=== PATIENT | female | born 1995 | race Caucasian/White ===

== ENCOUNTER 2022-04-15 12:25 | Outpatient (CLI) | payer OTHER, SELFPAY ==
[2022-04-15] VITALS (7 sets, daily range): BP systolic 124–139; BP diastolic 68–74; PULSE 79–97; TEMP 36.4–36.5; BMI 35.7
[2022-04-15] MEDS: Lactated Ringers 1,000 ML 999 ML IV (13:15)
[2022-04-15 13:29] LABS: ROM Internal Control Test YES-OK TO RESULT pt. (Internal QC); ROM Patient Test Negative (Negative)
[2022-04-15 14:17] LABS: Group B Strep DNA By PCR Negative (Negative); Internal Control PASS; Probe Check PASS; Specimen Processing Control PASS
--- NOTE | 2022-04-15 14:56 | OB.TRI.NOTE ---
HPI - General HPI Narrative ALFONSO BIRCH, is a 27 F at 36 weeks gestation who presents to triage with having a gush of fluid 3 days ago. Denies vaginal bleeding or continued leakage of fluid. Positive movement. Feeling some cramps that are less painful than menstrual cramps. Maternal Data Information NATASHA Calculator Estimated Delivery Date Method Current WG Current Estimate 05/13/22 Manual 36w 1d PFSH PFSH Home Medications Zoloft 50 mg PO/SL DAILY 04/15/22 [History Last Taken Unknown] vits,calcium 91-iron 28 mg-folic 975 mcg-dha 200 mg oral pack ( + DHA) 1 pkg PO DAILY 04/15/22 [History Last Taken 04/15/22] Allergy/AdvReac Type Severity Reaction Status Date / Time Penicillins Allergy Severe Anaphylaxis Verified 04/15/22 15:10 latex Allergy Mild rash/hives Verified 04/15/22 15:12 ROS Eyes Eyes: Denies blurry vision Cardiovascular Cardiovascular: Reports none; Denies chest pain at rest, chest pain with activity or dizziness Respiratory/Chest Respiratory/Chest: Denies cough or dyspnea Gastrointestinal Gastrointestinal: Reports none and other; Denies diarrhea or vomiting Genitourinary Genitourinary: Denies dysuria Musculoskeletal Musculoskeletal: Reports none Integumentary Integumentary: Reports none; Denies rash Neurologic Neurologic: Denies dizziness, headache(s) or other visual disturbances Psychiatric Psychiatric: Reports none Physical Exam Const alert and no apparent distress General Appearance: cooperative Orientation / Consciousness: awake Exam Limitations: no limitations HEENT normocephalic Eyes General Eye: normal appearance of both eyes Neck full ROM Chest inspection of chest normal Resp normal respiratory effort and normal air movement Effort and Inspection: symmetric chest movement Auscultation: clear to auscultation bilaterally Cardio regular rate GI soft to palpation, non-tender and non-distended Inspection: and other Back/Spine normal ROM Extremity full ROM, normal capillary refill and no calf tenderness Skin no rashes or lesions noted Neuro oriented x3 and CN's II-XII intact bilaterally Psych mental status grossly normal NST FHR Rate Baby A Baseline: 135 Variability:: Moderate Accelerations:: 15 x 15 Decelerations:: None NST Reactive:: Yes FHR Category:: Category I Uterine Activity:: 1-3 palpate mild and relaxed in between Assessment & Plan (1) 36 weeks gestation of : (2) Leakage of amniotic fluid: (3) Gestational diabetes: (4) Primigravida: (5) contractions: PLAN: Plan ROM plus - negative GBS collected and sent NST reactive, Cat. 1 tracing TOCO contractions every 1-3 minutes /-3 Start IV and give 1000 ml of fluid Extended monitoring No cervical change D/C home with follow up in office Dr. Swift notified
[2022-04-15] MEDS: Lactated Ringers 1,000 ML 200 ML IV (15:18)
== END 2022-04-15 16:25 | disposition home or self-care (01) ==
LOC: WPOUT 12:39 → WP 12:39
PROVIDERS: Visit Provider Advanced Practice Midwife
DX: O42.913 Preterm premature rupture of membranes, unspecified as to length of time between rupture and onset of labor, third trimester (principal); O24.419 Gestational diabetes mellitus in pregnancy, unspecified control; O09.613 Supervision of young primigravida, third trimester; O47.03 False labor before 37 completed weeks of gestation, third trimester; Z3A.36 36 weeks gestation of pregnancy
CPT/HCPCS: 96365; 96366; 59025; 59050; 84112; 87081; 87653; J7120

== ENCOUNTER 2022-05-06 18:25 | Inpatient (IN) | payer OTHER, SELFPAY ==
[2022-05-06] VITALS (8 sets, daily range): BP systolic 117–162; BP diastolic 66–101; PULSE 67–84; TEMP 36.6–36.8; O2SAT 98; BMI 37.7
[2022-05-06] MEDS: Lactated Ringers 1,000 ML 50 ML IV (20:05)
[2022-05-06 20:23] LABS: Absolute Lymphocyte Count 2.31 X10^3/uL (0.83-4.51); Absolute Neutrophil Count 7.3 X10^3/uL (2.0-7.7); Basophil# 0.08 X10^3/uL; Basophil% 0.7 % (0-1); Eosinophils% 0.9 % (0-5); Hematocrit 37.6 % (37-47); Hemoglobin 12.6 g/dL (12.0-15.0); Lymphocyte # 2.31 X10^3/ul (0.83-4.51); Lymphocyte % 20.5 % (19-41); Mean Corp Hgb Conc 33.5 g/dL (32-36); Mean Corpuscular Hgb 28.6 pg (27.0-32.0); Mean Corpuscular Volume 85.5 fL (81-99); Mean Platelet Vol. 10.1 fl (6.2-12.0); Monocyte# 1.39 X10^3/uL; Monocyte% 12.3 % (0-10); NRBC Flagged by Analyzer 0 % (0-5); Neutrophil # 7.29 X10^3/uL (2.7-7.7); Neutrophil % 64.8 % (47-70); Platelet Count 250 K/mm3 (150-450); RBC Distribution Width CV 13.2 % (11.6-14.6); RBC Distribution Width SD 40.3 fl (35.1-43.9); White Blood Count 11.3 K/mm3 (4.4-11.0)
[2022-05-06] MEDS: miSOPROStol 25 MCG TABLET PO (20:46)
--- NOTE | 2022-05-06 20:49 | PCM.HP.OB ---
HPI - General General Date of Admission: 05/06/22 HPI Narrative ALFONSO BIRCH, is a 27 F at 39 weeks gestation who presents for scheduled induction of labor for GDM A1 and polyhydramnios. Patient was a late transfer of care. Maternal Data Information NATASHA Calculator Estimated Delivery Date Method Current WG Current Estimate 05/13/22 Manual 39w 0d PFSH PFSH Medical History (Updated 05/06/22 @ 20:59 by Aileen Holbrook CNM) Adopted Anxiety Asthma Gestational diabetes Polyhydramnios Home Medications Zoloft 50 mg PO/SL DAILY anxiety 04/15/22 [History Last Taken 05/05/22 20:00] vits,calcium 91-iron 28 mg-folic 975 mcg-dha 200 mg oral pack ( + DHA) 1 pkg PO DAILY 04/15/22 [History Last Taken 05/05/22 20:00] Tylenol 1,000 mg PO/SL PRN PRN Pain 05/06/22 [History Last Taken Unknown] diphenhydramine HCl 25 mg capsule (Benadryl) 50 mg PO QHS PRN Sleep 05/06/22 [History Last Taken 05/05/22 20:00] Allergy/AdvReac Type Severity Reaction Status Date / Time Penicillins Allergy Severe Anaphylaxis Verified 04/15/22 15:10 latex Allergy Mild rash/hives Verified 04/15/22 15:12 Social History Smoking Status: Former smoker History Elective abortions Hx Para 0 Spontaneous abortions Hx # Term Pregnancies Ectopic pregnancies Hx # Pregnancies Multiple births # of living children ROS Eyes Eyes: Denies blurry vision, change in vision or spots in vision ENT HEENT: Denies dizziness or headache(s) Cardiovascular Cardiovascular: Denies abdominal pain, chest pain or dyspnea Respiratory/Chest Respiratory/Chest: Denies cough, dyspnea, shortness of breath at rest or shortness of breath with exertion Gastrointestinal Gastrointestinal: Denies abdominal pain, diarrhea or vomiting Genitourinary Genitourinary: Denies change in urinary stream, difficulty urinating or dysuria Musculoskeletal Musculoskeletal: Reports none Integumentary Integumentary: Denies rash Neurologic Neurologic: Denies dizziness, headache(s), memory loss or weakness Psychiatric Psychiatric: Reports none Vital Signs Vital Signs Vital Signs: 05/06/22 19:48 05/06/22 19:48 05/06/22 19:47 Temperature Temperature Source Temporal Pulse Rate 76 Blood Pressure BP Systolic BP Diastolic Pulse Ox 98 05/06/22 19:47 05/06/22 19:49 05/06/22 19:49 Temperature 97.8 F Temperature Source Pulse Rate 76 Blood Pressure 162/101 H BP Systolic 162 BP Diastolic 101 Pulse Ox 05/06/22 20:06 05/06/22 20:06 Temperature Temperature Source Pulse Rate 67 Blood Pressure 144/92 H BP Systolic 144 BP Diastolic 92 Pulse Ox Weight Weight: 193 lb Body Mass Index (BMI) 37.7 Physical Exam Const alert, oriented x3 and no apparent distress General Appearance: cooperative Orientation / Consciousness: awake Exam Limitations: no limitations HEENT normocephalic Head and Scalp: normal to inspection Eyes General Eye: normal appearance of both eyes Neck full ROM and no lymphadenopathy Lymph Lymphatic: no lymphadenopathy noted Chest inspection of chest normal Resp normal respiratory effort, normal air movement and clear to auscultation bilaterally Effort and Inspection: able to speak in complete sentences and symmetric chest movement Cardio regular rate and regular rhythm GI normal to inspection, nondistended, normoactive bowel sounds Manual OB Exam: presentation cephalic Back/Spine normal ROM Extremity full ROM and no calf tenderness Skin no rashes or lesions noted General Skin Exam: no breakdown Neuro oriented x3 and CN's II-XII intact bilaterally Psych mental status grossly normal and thought process normal Labs Labs Labs: Blood Type Pending Antibody Screen Pending Hct 37.6 % (37-47) Hgb 12.6 g/dL (12.0-15.0) Group B Strep DNA Negative (Negative) Assessment & Plan (1) 39 weeks gestation of : (2) GDM (gestational diabetes mellitus), class A1: (3) Polyhydramnios affecting : (4) Anxiety: COMMENT: pt takes zoloft (5) Encounter for induction of labor: PLAN: Plan GBS negative Admit to labor and delivery BP elevated upon admission- Continue to monitor/PIH labs drawn Routine labs Start IV and run fluids per orders CE- 1/50/-3 Cytotec 25 mcg PO every 4 hours x 6 doses total Anticipate placement of johns bulb in AM Dr. Swift notified of admission and is collaborating physician
[2022-05-06 21:45] LABS: Bedside Glucose 81 mg/dL (74-106)
[2022-05-06 21:45] LABS: Bedside Glucose 81 mg/dL (74-106)
[2022-05-06] MEDS: Sertraline 50 MG Tablet PO (23:13)
[2022-05-07] VITALS (54 sets, daily range): BP systolic 118–153; BP diastolic 61–96; PULSE 65–125; TEMP 36.2–36.9; O2SAT 93–100
[2022-05-07] MEDS: miSOPROStol 25 MCG TABLET PO ×2 (00:58→05:15)
[2022-05-07 01:25] LABS: Bedside Glucose 110 mg/dL (74-106)
[2022-05-07] MEDS: Acetaminophen 500 MG Tablet PO (05:15)
[2022-05-07 05:40] LABS: Bedside Glucose 84 mg/dL (74-106)
[2022-05-07] MEDS: 0.9% Normal Saline Single 100 ML IV.SOLN. INTRA-UTER (06:30)
[2022-05-07 07:43] LABS: ALB/GLOB Ratio 0.6 RATIO (0.9-2.4); AST(SGOT) 16 U/L (15-37); Alanine Aminotransfer ALT/SGPT 14 U/L (13-56); Albumin, Serum 2.7 g/dL (3.2-5.0); Alkaline Phosphatase 156 U/L (45-117); Anion Gap 7 (5-15); BUN 8 mg/dL (7-18); BUN/Creat Ratio 13.4 RATIO (10-20); Chloride 107 mmol/L (98-107); EST Glomerular Filtration Rate 130 mL/min (>60); Est Glom Filt Rate - Afr Amer 158 mL/min (>60); Estimated Creatinine Clearance 102.95 ml/min; Globulin 4.4 g/dL (2.2-4.2); Glucose 94 mg/dL (74-106); Potassium 3.9 mmol/L (3.5-5.1); Protein, Total 7.1 g/dL (6.4-8.2); Sodium Level 138 mmol/L (136-145)
[2022-05-07 07:46] LABS: Protein, Urine (Random) 8.4 mg/dL (<11.9); Protein:Creat Ratio 469 mg/g CRE (0-200)
--- NOTE | 2022-05-07 07:51 | PCM.PN.BLA ---
Progress Note Patient seen at bedside. Slept some during the night. Feeling an increase in pain with contractions. Desires epidural at some point. Physical Exam Const alert and no apparent distress General Appearance: cooperative and comfortable Exam Limitations: no limitations HEENT normocephalic Eyes General Eye: normal appearance of both eyes Neck full ROM General: normal visual inspection Chest Chest: symmetrical chest wall rise Resp normal respiratory effort and normal air movement Effort and Inspection: symmetric chest movement Auscultation: clear to auscultation bilaterally Cardio regular rate and regular rhythm GI normal to inspection, nondistended, normoactive bowel sounds Back/Spine normal ROM Extremity full ROM and no calf tenderness General Extremity: normal exam except as noted Skin no rashes or lesions noted Neuro CN's II-XII intact bilaterally Psych mental status grossly normal Assessment & Plan Assessment/Plan (1) Encounter for induction of labor: (2) Anxiety: (3) Polyhydramnios affecting : (4) GDM (gestational diabetes mellitus), class A1: (5) 39 weeks gestation of : (6) Primigravida: PLAN: Plan Blood pressures- occasional elevated readings- PIH labs Cytotec 25 mcg PO x 3 doses CE- 3/50/-3 Attempted placement of johns cath but cervix posterior and patient unable to tolerate Diet- light breakfast Start Pitocin IV at 2 mu/min and increase per policy Epidural when indicated
[2022-05-07 07:56] LABS: Bedside Glucose 78 mg/dL (74-106)
[2022-05-07] MEDS: Oxytocin 15 Units/NS 250ml 15 UNITS/250 ML IV.SOLN 2 UNITS IV (09:24)
[2022-05-07] MEDS: Lactated Ringers 1,000 ML 200 ML IV ×3 (12:05→21:58)
[2022-05-07] MEDS: LACTATED RINGERS 500 ML 999 ML IV (12:05)
[2022-05-07] MEDS: fentaNYL-bupivacaine (epidural) 100 ML BAG EPIDURAL ×3 (12:53→21:54)
[2022-05-07] MEDS: Ondansetron 4 MG/2 ML Vial IV ×2 (17:36→21:54)
[2022-05-07 18:46] LABS: Bedside Glucose 76 mg/dL (74-106)
[2022-05-07 20:00] LABS: Bedside Glucose 95 mg/dL (74-106)
[2022-05-07 21:01] LABS: Bedside Glucose 78 mg/dL (74-106)
--- NOTE | 2022-05-07 21:11 | NURSING ---
Per dayshift RN, pt had BGT's checked q4 hours, and had some results <70. [facility], not all BGT's that were reported to this RN were pulled into pt's chart from glucometer. Glucometer shows that pt's BGT was checked at 1056 with a result of 64, 1109 with a result of 66, 1124 with a result of 84, 1454 with a result of 68, and 1509 with a result of 72.
[2022-05-07] MEDS: Sertraline 50 MG Tablet PO (22:39)
[2022-05-08] VITALS (38 sets, daily range): BP systolic 105–144; BP diastolic 57–91; PULSE 64–119; RESP 12–16; TEMP 36.3–37.9; O2SAT 93–99
[2022-05-08 00:05] LABS: Bedside Glucose 80 mg/dL (74-106)
[2022-05-08 00:05] LABS: Bedside Glucose 78 mg/dL (74-106)
[2022-05-08 00:05] LABS: Bedside Glucose 76 mg/dL (74-106)
[2022-05-08] MEDS: Oxytocin 15 Units/NS 250ml 15 UNITS/250 ML IV.SOLN 20 UNITS IV (01:43)
[2022-05-08 02:05] LABS: Bedside Glucose 86 mg/dL (74-106)
[2022-05-08 02:05] LABS: Bedside Glucose 89 mg/dL (74-106)
[2022-05-08] MEDS: Lactated Ringers 1,000 ML 200 ML IV ×2 (02:47→07:43)
[2022-05-08] MEDS: fentaNYL-bupivacaine (epidural) 100 ML BAG EPIDURAL ×3 (02:57→12:27)
[2022-05-08 05:50] LABS: Bedside Glucose 91 mg/dL (74-106)
[2022-05-08 05:50] LABS: Bedside Glucose 85 mg/dL (74-106)
[2022-05-08 05:50] LABS: Bedside Glucose 88 mg/dL (74-106)
[2022-05-08 05:50] LABS: Bedside Glucose 83 mg/dL (74-106)
--- NOTE | 2022-05-08 06:20 | PCM.PN.BLA ---
Progress Note Patient seen at bedside. Continues to rest and is comfortable with epidural. Pitocin at 20 mu/min. Cat. 1 tracing. Assessment & Plan Assessment/Plan (1) Encounter for induction of labor: (2) Anxiety: (3) Polyhydramnios affecting : (4) GDM (gestational diabetes mellitus), class A1: (5) 39 weeks gestation of : PLAN: Plan Pitocin off x 1 hour then restart at 2 mu/min 2 TUMS PO Blood sugars within normal ranges NST reactive- CE- 7.5/90/[address] Swift updated
[2022-05-08 06:55] LABS: Bedside Glucose 77 mg/dL (74-106)
[2022-05-08] MEDS: Calcium Carbonate 500 MG Tablet 1000 MG PO (07:36)
[2022-05-08 07:40] LABS: Bedside Glucose 64 mg/dL (74-106)
[2022-05-08 07:40] LABS: Bedside Glucose 66 mg/dL (74-106)
[2022-05-08 07:41] LABS: Bedside Glucose 84 mg/dL (74-106)
[2022-05-08 07:41] LABS: Bedside Glucose 68 mg/dL (74-106)
[2022-05-08 07:41] LABS: Bedside Glucose 72 mg/dL (74-106)
[2022-05-08] MEDS: LACTATED RINGERS 500 ML 999 ML IV (07:44)
[2022-05-08 08:10] LABS: Bedside Glucose 76 mg/dL (74-106)
[2022-05-08 08:50] LABS: Bedside Glucose 80 mg/dL (74-106)
--- NOTE | 2022-05-08 08:51 | PCM.PN.OB ---
Subjective Subjective Resting comfortable in bed. Comfortable with epidural. Objective Data Objective Data 7.5cm/80%/0, OP Vital Signs: Vital Signs Temp Pulse BP Pulse Ox 99.0 F 82 138/72 H 96 05/08/22 08:28 05/08/22 08:28 05/08/22 08:28 05/08/22 06:28 Weight: 193 lb Body Mass Index (BMI) 37.7 Intake & Output: Intake and Output for Last 24 Hours 05/06/22 05/07/22 05/08/22 23:59 23:59 23:59 Intake Total 4478.96 / 4478.96 2207.33 / 2207.33 Output Total 2800 / 2800 1500 / 1500 Balance 1678.96 / 1678.96 707.33 / 707.33 Lab / Micro Data Result Diagrams: 05/06/22 20:00 05/06/22 20:00 Labs: Laboratory Results - last 24 hr 05/07/22 10:56: POC Glucose 64 L 05/07/22 11:09: POC Glucose 66 L 05/07/22 11:24: POC Glucose 84 05/07/22 14:54: POC Glucose 68 L 05/07/22 15:09: POC Glucose 72 L 05/07/22 18:11: POC Glucose 76 05/07/22 19:22: POC Glucose 95 05/07/22 20:29: POC Glucose 78 05/07/22 21:38: POC Glucose 80 05/07/22 22:37: POC Glucose 76 05/07/22 23:35: POC Glucose 78 05/08/22 00:34: POC Glucose 86 05/08/22 01:47: POC Glucose 89 05/08/22 02:37: POC Glucose 91 05/08/22 03:35: POC Glucose 85 05/08/22 04:28: POC Glucose 88 05/08/22 05:32: POC Glucose 83 05/08/22 06:34: POC Glucose 77 05/08/22 07:33: POC Glucose 76 05/08/22 08:31: POC Glucose 80 NST FHR Rate Baby A Baseline: 155 Variability:: Minimal Accelerations:: None Decelerations:: None FHR Category:: Category II Uterine Activity:: Irregular Assessment & Plan (1) Encounter for induction of labor: (2) Anxiety: COMMENT: pt takes zoloft (3) Polyhydramnios affecting : (4) 39 weeks gestation of : (5) GDM (gestational diabetes mellitus), class A1: PLAN: Plan 1) Pitocin break, minimal variability, will await reactive NST and restart pitocin 2) Epidural effective for pain management 3) BS normal range 4) BP mildly elevated but not 140/90s, no signs of preeclampsia 5) Will reassess at 1045 6) collaborative physician notified.
[2022-05-08 09:50] LABS: Bedside Glucose 78 mg/dL (74-106)
[2022-05-08 12:05] LABS: Bedside Glucose 71 mg/dL (74-106)
[2022-05-08 12:05] LABS: Bedside Glucose 70 mg/dL (74-106)
[2022-05-08] MEDS: 0.9% Saline Lock 10 ML Syringe IV ×2 (12:26→12:27)
[2022-05-08 13:00] LABS: Bedside Glucose 67 mg/dL (74-106)
[2022-05-08] MEDS: Sodium Citrate/Citric Acid 30 ML UDC PO (13:12)
[2022-05-08] MEDS: Acetaminophen 500 MG Tablet PO (13:12)
[2022-05-08] MEDS: Ondansetron 4 MG/2 ML Vial IV (13:51)
[2022-05-08] MEDS: Clindamycin 900 MG/50 ML BAG 75 MG IV (14:05)
[2022-05-08 14:16] LABS: Bedside Glucose 69 mg/dL (74-106)
--- NOTE | 2022-05-08 14:25 | PLAC_PTH ---
PATIENT: ALFONSO BIRCH LOC: [facility] U#:[id number] AGE/SX: 27/F ROOM: WP005 RE05/06/[address]: Aileen Holbrook CNM : 1995 BED: 1 DIS: 05/11/2022 SPEC #: [id number] RECD: 05/08/22 17:02 STATUS: ELAINA REDelbert #: [id number] NATALIA: 05/08/22 14:[address]: Aileen Holbrook DEPT: SURGICAL PATHOLOGY RECD BY: Tigist Edwards ENTERED: 05/09/22 10:04 SP TYPE: PLACENTA OT DR: No Primary Care Phys Tissues: Placenta, NOS Procedures: Surgery Specimen Level V HEADER OPERATION: Primary section PRE-OP DIAGNOSIS: Induction TISSUE SUBMITTED: Placenta MICROSCOPIC DIAGNOSIS Garcia placenta (614 gm): Umbilical cord ? trivascular with acute funisitis. Placental membranes ? acute chorioamnionitis and acute deciduitis. Placental disc ? foci of organizing intraparenchymal hemorrhage, Meenakshi-Trav change and intravillous congestion. AM:chadwick 05/11/2022 MICROSCOPIC DESCRIPTION Slides are reviewed. GROSS DESCRIPTION SPECIMEN: PLACENTA / CLINICAL INFORMATION: A. Weight: 3.515 kg B. Gestational Age: 39 weeks C. Sex: Female PLACENTAL WEIGHT (POST FIXATION): 614 gm PLACENTAL DIMENSIONS: 17.0 x 15.0 x 3.0 cm PLACENTAL SHAPE: Usual ovoid. The maternal surface is partly disrupted, however, appears to be complete. PLACENTAL WEIGHT FOR GESTATIONAL AGE: Over 99th percentile MEMBRANES - Present A. Insertion: Marginal B. Site of rupture from edge: At edge of placental disc C. Color of membrane: Wyman-dozier D. Abnormalities: None UMBILICAL CORD - Present A. Color: Wyman-dozier B. Insertion: The umbilical cord is inserted paracentrally 1.5 cm away from the margin of the placenta. C. Length: 29.0 cm D. Diameter: 1.0 cm E. Number of vessels: Three F. Abnormalities: None PLACENTAL DISC - Present A. Color of surface: Wyman-dozier B. surface abnormalities: None C. Maternal cotyledons: Intact with minimal tears D. Attached retro placental clot: No clot E. Cut surface: Dark red and spongy F. Lesions: Sections reveal multiple wyman, indurated areas, largest measuring 1.0 cm in greatest dimension. G. Separate clot: Absent SECTIONS SUBMITTED: 1. Membrane roll 2. Cord, maternal end 3. Cord, end 4. Placental disc, and maternal surfaces, lesion 5. Placental disc, and maternal surfaces, lesion 6. Placental disc, and maternal surfaces, three lesions 7. Maternal and surfaces, three lesions 8. Maternal and surfaces ARGELIA:chadwick 05/10/2022 TC:2 CPT: 89081
--- NOTE | 2022-05-08 14:56 | EX.PCM.OBRPT ---
Maternal Data Information NATASHA Calculator Estimated Delivery Date Method Current WG Current Estimate 05/13/22 Manual 39w 2d Final NATASHA: 05/13/22 Gestational age: 39 2/7 Details Operative Information Date of Procedure: 05/08/22 Pre-Operative Diagnosis: arrest of descent and dilation, CPD Post-Operative Diagnosis: same Classification: GALILEO Procedure Type: low transverse sheet metal worker helper #1: Breanna Shoemaker Type of Anesthesia: Epidural Anesthesiologist: Kb Painting Antibiotic Given: Clindamycin 600mg IV x1 and Gentamicin 1.5mg/kg IV x1 Drain: Arroyo to straight drain (blood tinged urine a the end of the procedure) Estimated Blood Loss: 900 Fluids Replaced: 1500 Procedure Start Time: 13: Time of Delivery: 13:25 Findings Description of Procedure: Apgars unavailable from pediatrics at time of this note. The patient had been 7 to 8 cm for over 7 hours. Contractions had been adequate. She had had artificial rupture membranes and Pitocin for over 24 hours. head was asynclitic and posterior, and the station was still -3. I discussed with the patient and her risk benefits and alternatives to primary section indications. They desire to proceed. The patient was taken to the operating room. She was prepped and draped in the dorsal supine position with a leftward tilt. A Pfannenstiel skin incision was made approximately 2 cm above the symphysis pubis and carried through to underlying layer fascia with the scalpel. The fascia was incised incised in the midline and extended laterally blunt dissection. The rectus muscles were in the midline and the peritoneum was entered bluntly. The peritoneal incision was stretched and the bladder blade was placed. The uterine incision was made in a low transverse fashion with the scalpel and extended superiorly and inferiorly with blunt dissection. At the time of hysterotomy a large amount of thick meconium stained fluid returned. This was relayed to the nursing team who called the narcotics and vice detective. The 's head was brought to the incision in the flexed position where it immediately floated away. Some fundal pressure was used to bring it back to the incision. It did not want to engage in the incision. A vacuum was placed on the flexion point and the vacuum created 550 mmHg. I pulled with 1 pull no pop offs until the head was coming out of the incision. The vacuum was then removed and the remainder the head was delivered with fundal pressure. The remainder of the was delivered with gentle traction and fundal pressure in the standard fashion. The mouth and nares were bulb suctioned. The cord was clamped and cut as the was stimulated. Cord clamping was not delayed as the was not vigorously crying and there was thick meconium fluid. The infant was handed off to the waiting nursing staff. The placenta was delivered with fundal massage and gentle traction in the standard fashion. The uterus was exteriorized and cleared of all clots and debris. The uterine incision was closed with #1 Vicryl in a running locked fashion. A second layer of the same suture was used in an imbricating fashion to help obtain hemostasis. Several [id number] 0 Vicryl sutures were needed to help obtain hemostasis. The incision was examined and was found to be hemostatic. The uterus was placed back into the peritoneal cavity and hemostasis was again confirmed. The rectus muscles were examined and any bleeding was Bovie cauterized. The parietal peritoneum and rectus muscles were closed en bloc with an 0 Vicryl running suture. The rectus fascia was examined and any bleeding was Bovie cauterized and the rectus fascia was closed with 1 Vicryl suture in a running standard fashion. The subcutaneous tissue was examining and any bleeding was Bovie cauterized. The subcutaneous tissue was reapproximated with 3-0 Vicryl suture. The skin was closed in a subcuticular fashion by the CIVIL DESIGN TECHNICIAN with me present in the labor and delivery suite. I performed the remainder of the procedure with assistance. All sponge, lap, and needle counts were correct. The patient was taken to her room for recovery in a stable condition. Presentation: Positive for ROP Amniotic Membrane Rupture Type: Artificial Amniotic Fluid Description: Clear (at SROM) and Thick meconium (at delivery) Placental Delivery Description: Expressed Placenta Disposition: Sent to Pathology Cord Vessel Description: 3 Vessels Cord Entanglement: None Nuchal Cord Compression: Without compression Cord Gases: ABG and VBG A Gender: Female (Valencia Ly) Delayed Cord Clamping: No Complications Complications: none
[2022-05-08] MEDS: Ketorolac 30 MG/ML Syringe IV ×2 (15:56→21:43)
[2022-05-08] MEDS: Oxytocin 15 Units/NS 250ml 15 UNITS/250 ML IV.SOLN 83 UNITS IV (15:57)
[2022-05-08 16:25] LABS: Bedside Glucose 81 mg/dL (74-106)
[2022-05-08] MEDS: Lactated Ringers 1,000 ML 100 ML IV (18:36)
--- NOTE | 2022-05-08 18:55 | NURSING ---
This RN received report from Matt Sheriff RN at 1800 and is taking over patient care at this time.
[2022-05-08] MEDS: Acetaminophen 500 MG Tablet 1000 MG PO (19:24)
--- NOTE | 2022-05-08 21:21 | NURSING ---
this RN removed epidural catheter. blue tip intact.
[2022-05-09 01:15] VITALS: RESP 16; O2SAT 95
[2022-05-09] MEDS: Acetaminophen 500 MG Tablet 1000 MG PO ×4 (01:15→19:35)
[2022-05-09 03:20] VITALS: BP 102/64; PULSE 100; RESP 16; TEMP 36.6; O2SAT 93
[2022-05-09] MEDS: Ketorolac 30 MG/ML Syringe IV ×2 (04:15→10:16)
[2022-05-09] MEDS: 0.9% Saline Lock 10 ML Syringe IV ×2 (04:16→10:15)
[2022-05-09 04:33] LABS: Hematocrit 31.8 % (37-47); Hemoglobin 11.1 g/dL (12.0-15.0); Mean Corp Hgb Conc 34.9 g/dL (32-36); Mean Corpuscular Hgb 29.6 pg (27.0-32.0); Mean Corpuscular Volume 84.8 fL (81-99); Mean Platelet Vol. 10.1 fl (6.2-12.0); Platelet Count 158 K/mm3 (150-450); RBC Distribution Width CV 13.3 % (11.6-14.6); RBC Distribution Width SD 41.1 fl (35.1-43.9); Red Blood Count 3.75 M/mm3 (4.2-5.4)
[2022-05-09 06:21] LABS: Bedside Glucose 96 mg/dL (74-106)
[2022-05-09 07:14] VITALS: BP 100/64; PULSE 72; RESP 18; TEMP 36
[2022-05-09] MEDS: Senna/Docusate Sodium 1 Tablet PO (10:16)
[2022-05-09 12:15] VITALS: BP 110/61; PULSE 95; RESP 15; TEMP 36.3; O2SAT 95
--- NOTE | 2022-05-09 12:35 | NURSING ---
1215- RN IBCLC in room to set up breast pump and initiate pumping with MOB. Education given about pump settings, flange fit, time spent pumping, and frequency of pumping. IBCLC stayed in room to view entire first pumping session. MOB was able to get 3cc and 2 swabs of colostrum for fist session. Encouragement and support given. Pumping schedule of q3hrs (12-3-6-9) written on patient white board as well as pump settings written out on paper and placed on patient bedside table. Both MOB and FOB shown pump assmebly and cleaning, all questions answered at this time.
--- NOTE | 2022-05-09 12:51 | PCM.PN.OB ---
Subjective Subjective Pain controlled. Unsure if passing gas. Objective Data Objective Data Vital Signs: Vital Signs Temp Pulse Resp BP Pulse Ox O2 Del Method 97.4 F L 95 15 110/61 95 Room Air 05/09/22 12:15 05/09/22 12:15 05/09/22 12:15 05/09/22 12:15 05/09/22 12:15 05/09/22 12:15 Oxygen Delivery Method Room Air Weight: 193 lb Body Mass Index (BMI) 37.7 Intake & Output: Intake and Output for Last 24 Hours 05/07/22 05/08/22 05/09/22 23:59 23:59 23:59 Intake Total 4478.96 / 4478.96 5274.35 / 5274.35 895 / 895 Output Total 2800 / 2800 3350 / 3350 250 / 250 Balance 1678.96 / 1678.96 1924.35 / 1924.35 645 / 645 Lab / Micro Data Result Diagrams: 05/09/22 04:20 05/06/22 20:00 Labs: Laboratory Results - last 24 hr 05/08/22 12:31: POC Glucose 67 L 05/08/22 13:50: POC Glucose 69 L 05/08/22 15:51: POC Glucose 81 05/09/22 04:20: WBC 18.0 H, RBC 3.75 L, Hgb 11.1 L, Hct 31.8 L, MCV 84.8, MCH 29.6, MCHC 34.9, RDW Std Deviation 41.1, RDW Coeff of Cynthia 13.3, Plt Count 158, MPV 10.1 05/09/22 05:56: POC Glucose 96 Physical Exam Const alert, oriented x3 and no apparent distress HEENT normocephalic GI soft to palpation and non-tender GI Narrative: Softly distended Fundus firm, mid & below umbilicus Incision - bandage c/d/i Extremity normal to inspection and no calf tenderness Assessment & Plan (1) Delivery by section: COMMENT: POD#1 (2) GDM (gestational diabetes mellitus), class A1: PLAN: Plan Heme - HDS, CBC reviewed ID - AF, no signs infection GI - encouraged walking & prune juice to add in passing gas & having a BM - no issues GDM - FBS normal this am
[2022-05-09] MEDS: Ibuprofen 600 MG Tablet PO ×2 (14:49→21:58)
[2022-05-09] MEDS: oxyCODONE 5 MG Tablet PO ×3 (14:50→22:56)
[2022-05-09 16:13] VITALS: BP 119/52; PULSE 98; RESP 16; TEMP 36.3; O2SAT 96
[2022-05-09 20:08] VITALS: BP 114/63; PULSE 89; RESP 15; TEMP 36.1; O2SAT 100
[2022-05-10] MEDS: Acetaminophen 500 MG Tablet 1000 MG PO ×3 (01:36→17:57)
[2022-05-10 01:38] VITALS: BP 109/61; PULSE 84; RESP 16; TEMP 36.2; O2SAT 96
[2022-05-10] MEDS: oxyCODONE 5 MG Tablet PO ×3 (03:19→15:46)
[2022-05-10] MEDS: Ibuprofen 600 MG Tablet PO ×4 (03:52→23:05)
--- NOTE | 2022-05-10 08:23 | PCM.PROGNOTE ---
Subjective Subjective patient seen at bedside, doing well. Patient reports good pain control. lochia mild. passing flatus, voiding w/o difficulty. Objective Data Objective Data Vital Signs: Vital Signs Temp Pulse Resp BP Pulse Ox O2 Del Method 97.2 F L 84 16 109/61 96 Room Air 05/10/22 01:38 05/10/22 01:38 05/10/22 01:38 05/10/22 01:38 05/10/22 01:38 05/10/22 01:38 Oxygen Delivery Method Room Air Weight: 87.543 kg Body Mass Index (BMI) 37.7 Intake & Output: Intake and Output for Last 24 Hours 05/08/22 05/09/22 05/10/22 23:59 23:59 23:59 Intake Total 5274.35 / 5274.35 895 / 895 Output Total 3350 / 3350 250 / 250 Balance 1924.35 / 1924.35 645 / 645 Lab / Micro Data Result Diagrams: 05/09/22 04:20 05/06/22 20:00 Physical Exam Narrative ABD: soft, fundus firm. Dressing dry and intact. Const alert and oriented x3 General Appearance: cooperative HEENT normocephalic Neck General: normal visual inspection GI soft to palpation and non-distended GI Narrative: Fundus firm Extremity normal to inspection and no calf tenderness Skin no rashes or lesions noted Neuro oriented x3 and CN's II-XII intact bilaterally Psych mental status grossly normal
[2022-05-10 09:00] VITALS: BP 124/72; PULSE 100; RESP 16; TEMP 36.4; O2SAT 96
[2022-05-10] MEDS: Senna/Docusate Sodium 1 Tablet PO (10:31)
[2022-05-10 16:46] VITALS: BP 128/71; PULSE 95; RESP 16; O2SAT 100
[2022-05-10 20:13] VITALS: BP 132/78; PULSE 99; RESP 16; TEMP 36.4; O2SAT 97
[2022-05-11] MEDS: Acetaminophen 500 MG Tablet 1000 MG PO ×3 (00:32→12:17)
[2022-05-11 02:40] VITALS: BP 135/76; PULSE 84; RESP 16; TEMP 36.3; O2SAT 98
[2022-05-11] MEDS: oxyCODONE 5 MG Tablet PO ×2 (03:44→09:58)
[2022-05-11] MEDS: Ibuprofen 600 MG Tablet PO ×2 (05:27→12:18)
[2022-05-11 07:48] VITALS: BP 117/71; PULSE 83; RESP 16; TEMP 36.6; O2SAT 97
--- NOTE | 2022-05-11 08:36 | DS.PCM_ITS ---
Providers Date of Admission: 05/06/22 Primary Care Physician: No Primary Care Phys Reason For Visit: INDUCTION Diagnosis Discharge Diagnosis (1) Delivery by section: Status: Acute (2) GDM (gestational diabetes mellitus), class A1: Status: Acute Code(s): O24.410 - Gestational diabetes mellitus in , diet controlled (3) Anxiety: Status: Acute Code(s): F41.9 - Anxiety disorder, unspecified (4) Care and examination of lactating mother: Status: Acute Code(s): Z39.1 - Encounter for care and examination of lactating mother Medications at Discharge Home Medications Zoloft 50 mg PO/SL DAILY anxiety 04/15/22 vits,calcium 91-iron 28 mg-folic 975 mcg-dha 200 mg oral pack ( + DHA) 1 pkg PO DAILY 04/15/22 Tylenol 1,000 mg PO/SL PRN PRN Pain 05/06/22 ibuprofen 600 mg tablet 600 mg PO Q6H #0 tabs 05/11/22 oxycodone 5 mg tablet 5 - 10 mg PO Q4H PRN PRN Pain Score 4-10 5 days #14 tabs 05/11/22 sennosides 8.6 mg-docusate sodium 50 mg tablet (Stool Softener-Stimulant Laxative) 1 - 2 tab PO DAILY #0 tabs 05/11/22 Hospital Course Operations section Summary of Care Provided Hospital Course: Patient was primary section. Hospital course was uneventful. Physical Exam Narrative Dressing is dry and intact Const alert and no apparent distress General Appearance: cooperative and comfortable Exam Limitations: no limitations HEENT normocephalic Eyes General Eye: normal appearance of both eyes Neck full ROM General: normal visual inspection Chest Chest: symmetrical chest wall rise Resp normal respiratory effort and normal air movement Effort and Inspection: symmetric chest movement Auscultation: clear to auscultation bilaterally Cardio regular rate and regular rhythm GI normal to inspection, nondistended, normoactive bowel sounds Back/Spine normal ROM Extremity full ROM and no calf tenderness General Extremity: normal exam except as noted Skin no rashes or lesions noted Neuro CN's II-XII intact bilaterally Psych mental status grossly normal Weight / BMI Weight Weight: 193 lb Body Mass Index (BMI) 37.7 ABG / Lab / Microbiology Data Result Diagrams: 05/09/22 04:20 05/06/22 20:00 D/C Instructions Discharge Diet: No restrictions Discharge Activity: Return to Normal Activity, May Drive (2 weeks) and May Shower May resume sexual activity in: 6-8 weeks Weight Bearing Status: Weight bearing as tolerated Lifting Restricted to (Lbs): 25 Call your doctor if you observe: Fever of 101 or Higher, Inability to urinate, I nability to have a bowel movement, Using more than 1 pad per hour, Shortness of breath, Dizziness, Chest pain, Calf discomfort and Uncontrolled pain Change Dressing in: leave in place till F/U Remove Dressing in: leave in place till F/U Cleanse incision/area with: Soap & Water Please Follow Up With: Aileen Holbrook CNM When: 1 week for dressing removal Meaningful Use Info Meaningful Use Diagnoses (Choose all that apply): None applicable Discharge Plan Admission Admit Date/Time: 05/06/22 18:25 Primary Reason for Your Visit: Labor and delivery Attending Provider: Aileen Holbrook Primary Care Provider: Care Physician,No Primary Discharge Orders/Prescriptions Prescriptions: New sennosides-docusate sodium [Stool Softener-Stimulant Laxat] 8.6-50 mg Tablet 1 - 2 tab PO DAILY Qty: 0 0RF ibuprofen 600 mg Tablet 600 mg PO Q6H Qty: 0 0RF oxycodone 5 mg Tablet 5 - 10 mg PO Q4H PRN PRN (Reason: Pain Score 4-10) 5 Days Qty: 14 0RF Continued + DHA 28 mg iron- 975 mcg-200 mg Combo Pack 1 pkg PO DAILY Zoloft 50 mg PO/SL DAILY Tylenol 1,000 mg PO/SL PRN PRN (Reason: Pain) Discontinued diphenhydramine HCl [Benadryl] 25 mg Capsule 50 mg PO QHS PRN (Reason: Sleep) Referrals / Follow Up: Aileen Holbrook CNM [Med Staff - Adv Practice Prof] - Care Physician,No Primary [Primary Care Provider] - Disposition Disposition (needs filled in before D/C Order can be placed): Home, Self Care
[2022-05-11] MEDS: Senna/Docusate Sodium 1 Tablet PO (09:58)
--- NOTE | 2022-05-11 12:00 | CASEMGMT ---
Social Work Brief Assessment Labor and Delivery Unit Patient Address: [address] [place] [address] Phone number: [phone] Date of Referral/Notification: 05/09/2022 Time of Referral: [id number] Referred By: Aileen Holbrook CNM Date of Intervention: 05/11/2022 Time of Intervention: Approximately 1200 Reason for Referral: Maternal anxiety and depression Informant: Medical record and mother of baby (MOB) Delfina Escalera; father of baby (FOB) Shahzad Pritchard present for part of conversation. History: MOB is a 27-year-old single female, follow-up with the FOB who is age 21 for over a year. During private conversation with the MOB, MOB denied any type of domestic violence or safety concerns with the FOB. [place] baby is the first child for both parents and is to be named Valencia Pritchard (05/08/[birth year]22). care is adequate for this family. MOB did have gestational diabetes. Delivery ended up as a delivery due to failure to progress. Infant also transferred [facility] the [facility] due to blood sugar issues. Infant's Apgars were 6-7-9 at 1-5-10 minutes of life respectively. weight 7 pounds 12 ounces. 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 FOB is just starting the [employer] so will be at home for the another month or so after school tutor starts. MOB and FOB are currently living with the MOB's parents. MOB does report history of depression and anxiety. Chart indicates diagnosis around 2012. During private conversation MOB denies any history of SI or HI. Did go on the Zoloft in the latter part of the and plans to remain on this in the timeframe. MOB reports just started with a counselor in [facility] and has an appointment coming up on May 23. MOB denies any type of substance use issues for self. FOB also denies any substance use issues. Assessment: Met with MOB and FOB in room, introducing to self and social work role. Educated role as the [facility] clinical social work aide assigned to labor and delivery unit as well as for continuity of care of families also the clinical social work aide assigned to the special care nursery where baby has been transferred. MOB and FOB expressed understanding. Met with parents together and then along with the MOB to further discuss history of depression. Also reviewed any type of safety concerns in the home. MOB denies any safety concerns and denies any domestic violence concerns. MOB reports to have good support from her family and the FOB. Reports that FOB will be at home to help for the next month or so and then MOB's parents will also be around. Parents report to have all necessary supplies to care for the at home including safe sleep spaces and a car seat. MOB is planning on breast-feeding and has a pump. MOB reports intent to remain in counseling and on antidepressant medication. Educated MOB and FOB to depression anxiety, risk factors and importance of seeking out help and support should symptoms become distressing. Reviewed resources including applying for Medicaid for the 's due to MOB being on her parents insurance. Provided Medicaid application and resources for their home area. Resources on mood and anxiety disorders also provided. MOB and FOB both agree to help me grow referral. Observed MOB and FOB to be receptive to social work visit. Talkative, good eye contact. This handbook writer did observe however MOB appearing painful and having difficulty moving related to the . MOB relied on the FOB for help and sitting up and sitting down. MOB expressed feeling that support the FOB can provide will be adequate at home. Updated nursing. Plan: MOB will discharge home with family support. is in the special care nursery and also slated for discharge today. No further needs requested or indicated. -MARIA ESTHER Landeros, SUJATHA *This note was generated with [employer] dictation software. It may contain incorrect words, spelling, and punctuation that were not noted in review of the chart prior to signing*
[2022-05-11 12:15] VITALS: BP 138/69; PULSE 107; RESP 16; TEMP 36.7
--- NOTE | 2022-05-13 08:58 | CASEMGMT ---
Social Work Labor and Delivery unit Help me grow referral submitted through the [facility] assisted care web-based referral system. No other services requested or indicated. -JAIME Landeros, BROKE WORKER. *This note was generated with [employer] dictation software. It may contain incorrect words, spelling, and punctuation that were not noted in review of the chart prior to signing*
== END 2022-05-11 13:00 | disposition home or self-care (01) | DRG 786 ==
PROVIDERS: Obstetrics & Gynecology; Admitting Provider Advanced Practice Midwife; Visit Provider Advanced Practice Midwife
DX: O76 Abnormality in fetal heart rate and rhythm complicating labor and delivery (principal); O41.1230 Chorioamnionitis, third trimester, not applicable or unspecified; O24.420 Gestational diabetes mellitus in childbirth, diet controlled; O40.3XX0 Polyhydramnios, third trimester, not applicable or unspecified; F41.9 Anxiety disorder, unspecified; O77.0 Labor and delivery complicated by meconium in amniotic fluid; O99.344 Other mental disorders complicating childbirth; Z37.0 Single live birth; Z3A.39 39 weeks gestation of pregnancy; O99.892 Other specified diseases and conditions complicating childbirth; R03.0 Elevated blood-pressure reading, without diagnosis of hypertension; O33.9 Maternal care for disproportion, unspecified; O32.4XX0 Maternal care for high head at term, not applicable or unspecified; O42.92 Full-term premature rupture of membranes, unspecified as to length of time between rupture and onset of labor; Z79.899 Other long term (current) drug therapy; Z87.891 Personal history of nicotine dependence
CPT/HCPCS: 59025; 59050; 80053; 82570; 82962; 84156; 85025; 85027; 86850; 86900; 86901; 88307; 99221; J7120; A4216; G0378; J2405